=== PATIENT | female | born 1975 | race Caucasian/White ===

== ENCOUNTER 2021-05-19 06:40 | Emergency (ER) | payer SELFPAY ==
[2021-05-19] MEDS ORDERED: DIMETAPP COLD237 M1 PO (09:46)
[2021-05-19] MEDS ORDERED: PROAIR HFA8.5 GM INH (09:46)
== END 2021-05-19 09:57 | disposition home or self-care (01) ==
LOC: ER1 06:40
DX: J20.9 Acute bronchitis, unspecified (principal); Z90.710 Acquired absence of both cervix and uterus; Z88.5 Allergy status to narcotic agent; Z20.822 Contact with and (suspected) exposure to COVID-19; Z88.2 Allergy status to sulfonamides
CPT/HCPCS: 71045; 87081; 87880; 99283; U0002